=== PATIENT | female | born 1990 | race Caucasian/White ===

== ENCOUNTER 2020-01-31 09:16 | Day surgery (SDC) | payer OTHER | END 2020-01-31 18:55 | disposition home or self-care (01) | LOC: CIR.AMB 09:16 | DX: O02.1 Missed abortion (principal) ==

== ENCOUNTER 2020-11-19 16:16 | Emergency (ER) | payer OTHER ==
[~2020-11-19] VITALS: Ht 162.6 cm; Wt 77.1 kg
[2020-11-19] MEDS ORDERED: DIALYVITE 800800 MCG PO (16:29)
== END 2020-11-19 18:50 | disposition home or self-care (01) ==
LOC: ER 16:16
DX: O20.0 Threatened abortion (principal)